=== PATIENT | female | born 1970 | race Caucasian/White ===

== ENCOUNTER → 2020-10-24 | Outpatient (CLI) | payer BC | LOC: RAD 08:30 | PROVIDERS: ATTEND Nurse Practitioner Family | DX: Z12.31 Encounter for screening mammogram for malignant neoplasm of breast (principal) | CPT/HCPCS: 77063; 77067 ==

== ENCOUNTER 2021-05-05 16:10 | Day surgery (SDC) | payer BC ==
[2021-05-05] VITALS (9 sets, daily range): BP systolic 112–131; BP diastolic 57–78
[~2021-05-05] VITALS: Ht 165.1 cm; Wt 81.9 kg
--- NOTE | 2021-05-05 16:33 | History & Physical-Surgical ---
History of Present Illness History of Present Illness Reason for visit/HPI Pt is a 51 yo female who had severe abdominal pain last night that was not going away. Located in RU it started after she ate a burger. She thinks she has had similar pain like this over the past 3-4 months; "but never this bad". She states usually she "vomits" and pain goes away, last night she vomited but pain did not go away. At its worst she rated it as an 8 out of 10; sharp crampy pain with no radiation. She states she recently lost about 50lbs with diet changes. She still has some pain now, but it is better than it was. "You couldn't even touch my stomach before". She was sent by the PA at [facility] urgent care for US; which showed thickened GB wall and cholelithiasis. Date of Admission May 05, 2021 at 16:10 Time Seen by a Provider: 16:22 I consulted on this patient on 05/05/21 16:28 Attending Physician Emanuel Ibarra DO Admitting Physician Naomie Boone MD Consult Allergies and Home Medications Patient Home Medication List Home Medication List Reviewed: Yes Past Jepapxx-Youvdq-Jhgoxw Hx Patient Social History Smoking Status: Never a Smoker Alcohol Use?: Yes (socially) Surgeries History of Surgeries: Yes Surgeries: Section, Nose (nasal polyp removal) Respiratory History of Respiratory Disorde: No Cardiovascular History of Cardiac Disorders: Yes Cardiac Disorders: Hypertension Neurological History of Neurological Disord: No Reproductive System : No Genitourinary History of Genitourinary Disor: No Gastrointestinal History of Gastrointestinal Di: No Musculoskeletal History of Musculoskeletal Dis: No Endocrine History of Endocrine Disorders: No HEENT History of HEENT Disorders: No Loss of Vision: Denies Hearing Impairment: Denies Cancer History of Cancer: No Psychosocial History of Psychiatric Problem: No Integumentary History of Skin or Integumenta: No Family Medical History Significant Family History: Hypertension (mother and father), Stroke (father) Review of Systems Constitutional: No dizziness, No fever, No malaise EENTM: No blurred vision, No double vision, No mouth pain, No mouth swelling Respiratory: No cough, No dyspnea on exertion Cardiovascular: No chest pain, No palpitations Gastrointestinal: RUQ, abdominal pain; No hematemesis, No jaundice; nausea, vomiting Genitourinary: No dysuria, No frequency, No hematuria Musculoskeletal: No back pain, No joint pain, No muscle pain Skin: No change in color, No change in hair/nails Psychiatric/Neurological: Denies Anxiety, Denies Depressed, Denies Seizure, Denies Tremors Physical Exam Vital Signs Capillary Refill : Height, Weight, BMI Height: '" Weight: lbs. oz. kg; BMI Method: General Appearance: WD/WN, Mild Distress Eyes: Bilateral Eye PERRL, Bilateral Eye EOMI HEENT: Pharynx Normal, Moist Mucous Membranes; No Pale Conjunctivae (L), No Pale Conjunctivae (R), No Scleral Icterus (L), No Scleral Icterus (R) Neck: Non Tender, Supple Respiratory: Chest Non Tender, Lungs Clear, Normal Breath Sounds, No Accessory Muscle Use, No Respiratory Distress Cardiovascular: Regular Rate, Rhythm, No Murmur Gastrointestinal: Normal Bowel Sounds, No Organomegaly, No Pulsatile Mass, Soft, Tenderness (RUQ with palpation) Rectal: Deferred Back: No CVA Tenderness, No Vertebral Tenderness Extremity: Non Tender, No Calf Tenderness, No Pedal Edema Neurologic/Psychiatric: Alert, Oriented x3, No Motor/Sensory Deficits, Normal Mood/Affect, stenciling machine tender II-XII Norm as Tested Skin: Normal Color, Warm/Dry Lymphatic: No Adenopathy (neck, axilla or groin) Data Review Radiology Date of Exam:05/05/21 US GALLBLADDER [id number] PROCEDURE: US gallbladder. TECHNIQUE: Multiple real-time grayscale images were obtained over the right upper quadrant in various projections. INDICATION: Right upper quadrant pain. FINDINGS: The liver is normal in size. There is hepatopedal flow in the main portal vein. There are no focal liver lesions. There is cholelithiasis. There is gallbladder wall thickening up to 3.4 mm. There is no pericholecystic fluid. There is prominence of the common bile duct up to 9 mm. There is mild intrahepatic biliary ductal dilatation. Pancreas is not well seen due to bowel gas. The aorta is nonaneurysmal. The IVC is patent. Right kidney is normal. There is no ascites. Castaneda sign is negative. IMPRESSION: Cholelithiasis and gallbladder wall thickening up to 3.4 mm. Additionally, there is prominence of the common bile duct up to 9 mm. Mild intrahepatic biliary ductal dilatation. Possibility of choledocholithiasis cannot be excluded. Recommend clinical correlation and, if warranted, follow up with MRCP. Dictated on workstation # [id number] Dict: 05/05/21 1500 Trans: 05/05/[address] [facility] [id number] Interpreted by: MEÑO BLACK MD Assessment/Plan Assessment/Plan Admission Diagonsis Acute Cholecystitis with Cholelithiasis Admission Status: Observation Assessment/Plan Acute Cholecystitis with Cholelithiasis Pt has symptoms which indicate cholecystitis and US has signs of acute cholecystitis; thickened GB wall, stones and dilated CBD. Her WBC and Bilirubin are normal but LFT's are elevated. I think she will benefit from having her gallbladder removed; we discussed the surgery in detail, risks and complications not limited to pain, bleeding, infection, scar and damage to bowel or bile duct. All questions answered to her and her 's satisfaction. I also told her that her pain may not go away; this is a small chance. She was in pain enough to come back to the hospital and wants to get her gallbladder removed. EMANUEL IBARRA DO May 05, 2021 16:33
[2021-05-05] MEDS ORDERED: AMLO-250 PO (16:44)
[2021-05-05] MEDS ORDERED: LOSA100T57 PO (16:44)
[2021-05-05] MEDS ORDERED: HYDR25TA4 PO (16:45)
[2021-05-05] MEDS ORDERED: LACTATED RINGERS 1,000 ML IV ONE (16:45)
[2021-05-05] MEDS ORDERED: ceFAZolin 2 GM IV Premixed 50 ML IV ONE (16:45)
[2021-05-05] MEDS ORDERED: proPOfol 200 MG/20 ML (DIPRIVAN) VIAL IV ONE (16:54)
[2021-05-05] MEDS ORDERED: ONDANSETRON 4 MG/2 ML (SDV) Z0FRAN ONE ×2 (16:54→16:59)
[2021-05-05] MEDS ORDERED: ROCURONIUM 10 MG/ML 5 ML SYRINGE IV ONE (16:54)
[2021-05-05] MEDS ORDERED: fentaNYL INJ 100 MCG/2 ML AMP ONE (16:54)
[2021-05-05] MEDS ORDERED: LIDOCAINE PF 2% 5 ML (XYLOCAINE) VIAL ONE (16:54)
[2021-05-05] MEDS ORDERED: MIDAZOLAM 2 MG/2 ML (VERSED) VIAL ONE (16:54)
[2021-05-05] MEDS ORDERED: SEVOFLURANE (ULTANE) 15 ML INHAL SOLN ONE ×2 (16:54→18:12)
[2021-05-05] MEDS ORDERED: HYDROmorphone 2 MG/ML VIAL (DILAUDID) ONE ×2 (16:59→18:07)
[2021-05-05] MEDS ORDERED: GLYCOPYRROLATE 0.2 MG/ML (ROBINUL) 2 ML VIAL ONE ×2 (17:42→18:08)
[2021-05-05] MEDS ORDERED: LACTATED RINGERS 1,000 ML IV PRN (17:45)
[2021-05-05] MEDS ORDERED: NEOSTIGMINE 3 MG/3 ML VIAL ONE (18:08)
[2021-05-05] MEDS ORDERED: KETOROLAC 30 MG/ML VIAL ONE (18:14)
--- NOTE | 2021-05-05 18:33 | Progress Note-Post Operative ---
Post-Operative Progess Note Surgeon (s)/French Instructor (s) Surgeon KI IBARRA DO French Instructor: BILL Schmidt Pre-Operative Diagnosis Acute cholecystitis with cholelithiasis Post-Operative Diagnosis same plus choledochalithiasis with possible obstruction Procedure & Operative Findings Date of Procedure 05/05/21 Procedure Performed/Findings PROCEDURE: Laparoscopic cholecystectomy with intraoperative cholangiogram. COMPLICATIONS: None. PROCEDURE: The patient was taken to the operating suite and was prepped and draped in sterile fashion. A surgical pause was performed. Just superior to the umbilicus, a 12 mm incision was made. Dissection was taken down to the fascia, which was then scored and grasped with a Darnell and the abdomen was then entered. A 0 Vicryl suture was placed in a [id number] fashion and a Medrano trocar was placed and secured. Pneumoperitoneum was achieved. A 5mm tro[address] in the subxyphoid and 2 in the right upper quadrant. The gallbladder was noted to be edematous and inflamed; wall was thickened. Then grasped at the fundus and elevated in the superior direction. Next grasped at Ambrose's pouch and pulled in the inferior and lateral direction. The cystic duct and cystic artery were then dissected out. Clip was placed on the distal portion of the cystic duct which was then partially transected. An arrow catheter was inserted into the duct. The cholangiogram was then performed. It was very hard to inject the contrast, which slowly went down the common bile duct but stopped and could see small stones at ampulla. Gave some Glucagon and waited appx 5 minutes, did get contrast into the small intestine. However, still couldn't flush contrast very easily. Removed the catheter and then tried to get stones out by pushing on the common bile duct, did get some sludge. There was not a lot of pressure because fluid did not come shooting out when catheter was removed. Clips were placed on proximal portion of the cystic duct and then the duct was then transected. Clips were placed along the proximal and distal portion of the cystic artery which was then transected. Hook cautery was used to dissect the gallbladder from the gallbladder fossa achieving hemostasis. The gallbladder was placed in an Endobag and removed through the 12 mm trocar site. The abdomen was then reinspected. Copious amounts of irrigation were used to irrigate the abdomen and there were no signs of active bleeding. Hemostasis had been achieved. The 12 mm fascial defect was then closed with 0 Vicryl suture that had been placed in a [id number]-[id number]-dwmop fashion. The abdomen was then desufflated, the trocars were removed. The abdomen was then washed and dried. The skin was then closed using 4-0 Monocryl in a subcuticular fashion. The abdomen was washed and dried and Skin Affix was place over incisions. Patient tolerated the procedure well without any complications and was taken to the recovery room in stable condition. Anesthesia Type GET Estimated Blood Loss Estimated blood loss (mL): scant Specimens/Packing Specimens Removed GB and contents KI IBARRA DO May 05, 2021 18:33
--- NOTE | 2021-05-05 18:42 | Diagnostic Imaging Report ---
Comparison: None. Technique: Single intraoperative fluoroscopic image of the abdomen. Fluoroscopic Time: 49.6 seconds. Findings: Intraoperative fluoroscopic image was obtained during cholecystectomy. Contrast is seen within the common bile duct emptying into the small bowel. Impression: Fluoroscopic intraoperative image obtained during cholecystectomy. Dictated by: Dictated on workstation # [id number]
[2021-05-05] MEDS ORDERED: HYDROmorphone 2 MG/ML VIAL (DILAUDID) IV ONE (18:45)
--- NOTE | 2021-05-05 18:57 | Anesthesia-General Post-Op ---
General Patient Condition Mental Status/LOC: Same as Preop Cardiovascular: Satisfactory Nausea/Vomiting: Absent Respiratory: Satisfactory Pain: Controlled Complications: Absent Post Op Complications Complications None Follow Up Care/Instructions Patient Instructions None needed. Anesthesia/Patient Condition Patient Condition Patient is doing well, no complaints, stable vital signs, no apparent adverse anesthesia problems. No complications reported per nursing. D/C home per [facility] Criteria: Yes VIANCA ADHIKARI CRNA May 05, 2021 18:57
--- NOTE | 2021-05-05 18:59 | Discharge Inst-Surgical ---
Discharge Inst-Surgical Depart Medication/Instructions New, Converted or Re-Newed RX: Other (Pt already rx Tramadol, can use for pain) Patient Instructions Follow up Appt: Make appointment for 1 week. [phone] May need to call Friday for Lab orders and help with getting to GI for ERCP Instructions: No lifting greater than 20 pounds. No strenuous activity. May shower in 24 hours, no tub bath or soaking. Use incentive spirometer at home as directed. No Smoking Skin/Wound Care: May remove bandages in am. You need to leave the Dermabond on incision it will fall off on it's own. Symptoms to Report: Appetite Changes, Extremity Discoloration, Numbness/Tingling, Swelling Increased, Bleeding Excessive, Eyesight Changes, Pain Increased, Urine Color Change, Constipation(Persistent), Fever over 101 degree F, Pain/Pressure in chest, Urinating Difficulty, Cough Up/Vomit Blood, Heart Beat Irreg/Pounding, Pain/Pressure in jaw, Cramps in feet or legs, Lightheadedness, Pain/Pressure in shoulder, Diarrhea(Persistent), Memory Changes Suddenly, Questions/Concerns, Weight gain consecutive days, Dizziness/Fainting, Nausea/Vomiting, Shortness of Breath, Weight gain over 2 pounds If questions or concerns contact your physician Or seek help at emergency department. Activity Activity as Tolerated: Yes Activity Instructions: Avoid Stress to Incision Driving Instructions: No Driving/Refer to Diet Discharge Diet: Avoid Fatty Foods, Low Fat/Low Cholesterol Diet After 24 Hours: Clear Liquid if Nauseous If Any Problems/Questions/Issu: Contact Your Physician, Go to Emergency Room Skin/Wound Care Infection Signs and Symptoms: Increased Redness, Foul Odor of Wound, Increased Drainage, Skin Itchy or Has a Rash, Increased Swelling, Temperature Above 101 F Wound Care Comment: heating pad to shoulder or neck tonight for pain Bathing Instructions: Shower Stitches/Temo/Dermabond Dis: Dermabond Ice Pack: Ice On and Off Site (as needed for pain at incision sites) KI IBARRA DO May 05, 2021 18:58
[2021-05-05] MEDS: ONDANSETRON 4 MG/2 ML (SDV) Z0FRAN IVP PRN ×2 (19:27→20:45)
== END 2021-05-05 22:00 | disposition home or self-care (01) ==
LOC: UNDOADMOB 16:10 → 4TH 16:10 → SDC 16:10 → 4TH 16:10 → EDSTATUS 17:50 → UNDODISOB 22:00 → SDC 22:00
PROVIDERS: ATTEND Surgery
DX: K80.12 Calculus of gallbladder with acute and chronic cholecystitis without obstruction (principal); I10 Essential (primary) hypertension; Z82.3 Family history of stroke; Z79.899 Other long term (current) drug therapy
CPT/HCPCS: 76000; 87081; 87636; 88304

== ENCOUNTER → 2021-05-05 | Outpatient (CLI) | payer BC ==
[~2021-05-05] MED LIST: AMLO-250 PO; HYDR25TA4 PO; LOSA100T57 PO
[2021-05-05 13:30] LABS: BASOPHILS % (AUTO) 0 % (0-10); EOSINOPHILS % (AUTO) 0 % (0-10); HEMATOCRIT 40 % (35-52); HEMOGLOBIN 12.7 g/dL (11.5-16.0); LYMPHOCYTES # (AUTO) 0.5 10^3/uL (1.0-4.0); LYMPHOCYTES % (AUTO) 8 % (12-44); MEAN CORPUSCULAR HEMOGLOBIN 28 pg (25-34); MEAN CORPUSCULAR HGB CONC 32 g/dL (32-36); MEAN CORPUSCULAR VOLUME 87 fL (80-99); MEAN PLATELET VOLUME 9.9 fL (9.0-12.2); MONOCYTES # (AUTO) 0.4 10^3/uL (0.0-1.0); MONOCYTES % (AUTO) 7 % (0-12); NEUTROPHILS # (AUTO) 5.3 10^3/uL (1.8-7.8); NEUTROPHILS % (AUTO) 85 % (42-75); PLATELET COUNT 266 10^3/uL (130-400); WHITE BLOOD COUNT 6.2 10^3/uL (4.3-11.0)
[2021-05-05 13:59] LABS: BILIRUBIN,TOTAL 2.6 MG/DL (0.1-1.0); CALCIUM 9.7 MG/DL (8.5-10.1); CREATININE SERUM 0.68 MG/DL (0.60-1.30); POTASSIUM 3.8 MMOL/L (3.6-5.0); TOTAL PROTEIN 7.3 GM/DL (6.4-8.2)
[2021-05-05 14:14] LABS: LYMPHOCYTES % (MANUAL) 11 %; MONOCYTES % (MANUAL) 8 %; NEUTROPHILS % (MANUAL) 81 %; RBC MORPH NORMAL
== END ==
LOC: LAB 13:02
PROVIDERS: ATTEND Physician Assistant
DX: I10 Essential (primary) hypertension (principal); R10.11 Right upper quadrant pain; R11.10 Vomiting, unspecified
CPT/HCPCS: 36415; 80053; 82150; 83690; 85007; 85027; 86677

== ENCOUNTER → 2021-05-05 | Outpatient (CLI) | payer BC ==
--- NOTE | 2021-05-05 15:30 | Diagnostic Imaging Report ---
PROCEDURE: US gallbladder. TECHNIQUE: Multiple real-time grayscale images were obtained over the right upper quadrant in various projections. INDICATION: Right upper quadrant pain. FINDINGS: The liver is normal in size. There is hepatopedal flow in the main portal vein. There are no focal liver lesions. There is cholelithiasis. There is gallbladder wall thickening up to 3.4 mm. There is no pericholecystic fluid. There is prominence of the common bile duct up to 9 mm. There is mild intrahepatic biliary ductal dilatation. Pancreas is not well seen due to bowel gas. The aorta is nonaneurysmal. The IVC is patent. Right kidney is normal. There is no ascites. Castaneda sign is negative. IMPRESSION: Cholelithiasis and gallbladder wall thickening up to 3.4 mm. Additionally, there is prominence of the common bile duct up to 9 mm. Mild intrahepatic biliary ductal dilatation. Possibility of choledocholithiasis cannot be excluded. Recommend clinical correlation and, if warranted, follow up with MRCP. Dictated by: Dictated on workstation # [id number]
== END ==
LOC: RAD 13:22
PROVIDERS: ATTEND Physician Assistant
DX: K80.20 Calculus of gallbladder without cholecystitis without obstruction (principal); K83.8 Other specified diseases of biliary tract
CPT/HCPCS: 76705

== ENCOUNTER → 2021-05-08 | Outpatient (CLI) | payer BC ==
[2021-05-08 15:38] LABS: ALBUMIN 3.7 GM/DL (3.2-4.5); BILIRUBIN,TOTAL 0.8 MG/DL (0.1-1.0); CALCIUM 9.3 MG/DL (8.5-10.1); CREATININE SERUM 0.74 MG/DL (0.60-1.30); POTASSIUM 3.6 MMOL/L (3.6-5.0)
== END ==
LOC: LAB 14:59
PROVIDERS: ATTEND Surgery
DX: Z01.89 Encounter for other specified special examinations (principal)
CPT/HCPCS: 36415; 80053

== ENCOUNTER → 2021-05-28 | Outpatient (CLI) | payer BC ==
[~2021-05-28] MED LIST changes: +CATHETER FLUSH 10 ML SYR IV PRN
--- NOTE | 2021-05-28 11:57 | Diagnostic Imaging Report ---
INDICATION: Cholecystectomy on 05/05/2021. Epigastric pain. Evaluate for leak. EXAMINATION: HIDA scan 05/28/2021 FINDINGS: After uneventful administration 4.33 mCi of mebrofenin intravenously subsequent imaging is performed with prompt homogeneous uptake seen throughout the liver. Small bowel seen within less than 30 minutes. Imaging was performed to 80 minutes with the lateral view also obtained. Radiotracer courses along the left inferior lateral border of the liver. This could represent radiotracer within the duodenum and refluxing into the stomach. A focal leak less likely but difficult to exclude. CT recommended to evaluate for collection of fluid in the region. IMPRESSION: 1. Radiotracer coursing along the left inferior lateral border of the left lobe of the liver nonspecific see above discussion. CT recommended for better characterization of the anatomy within the region and to exclude a fluid collection corresponding to the area described above. Report was faxed to office of Dr. Gonzalez by shae at 11:54am. Dictated by: Dictated on workstation # [id number]
== END ==
LOC: CARD 10:00
PROVIDERS: ATTEND Surgery
DX: R10.13 Epigastric pain (principal); Z90.49 Acquired absence of other specified parts of digestive tract
CPT/HCPCS: 78226; A9537

== ENCOUNTER → 2022-03-14 | Outpatient (CLI) | payer BC ==
[~2022-03-14] MED LIST changes: -CATHETER FLUSH 10 ML SYR IV PRN
[2022-03-14 12:30] LABS: BILIRUBIN,DIRECT 0.3 MG/DL (0.0-0.3); BILIRUBIN,INDIRECT 0.3 MG/DL; BILIRUBIN,TOTAL 0.6 MG/DL (0.1-1.0); TOTAL PROTEIN 7.3 GM/DL (6.4-8.2)
== END ==
LOC: LAB 11:36
PROVIDERS: ATTEND Internal Medicine Gastroenterology
DX: R94.5 Abnormal results of liver function studies (principal)
CPT/HCPCS: 36415; 80076

== ENCOUNTER → 2022-11-25 | Outpatient (CLI) | payer BC ==
--- NOTE | 2022-11-26 11:12 | Diagnostic Imaging Report ---
EXAMINATION: Bilateral screening mammogram with CAD. INDICATION: Screening. COMPARISON: This study was compared to the prior exams of 10/24/2020 and 12/29/2018. PERSONAL HISTORY: At this time, there are no current complaints. FINDINGS: Breast Tissue Density: C . The breast tissue is heterogeneously dense. Scattered fibroglandular elements may obscure underlying pathology. There are no suspicious masses, microcalcifications, or areas of architectural distortion. IMPRESSION: No suspicious findings. ACR BI-RADS Category 1: Negative. Result letter will be mailed to the patient. Note: At least 10% of breast cancer is not imaged by mammography. Normal interval followup. The patient will receive a letter with the results in the mail. Your mammogram demonstrates that you have dense breast tissue which could hide abnormalities and, if you have other risk factors for breast cancer that have been identified, you might benefit from supplemental screening tests that may be suggested by your ordering physician. Dense breast tissue, in and of itself, is a relatively common condition. This information is not provided to cause undue concern but rather to raise your awareness and to promote discussion with your physician regarding the presence of other risk factors in addition to dense breast tissue. A report of your mammography results will be sent to you and your physician. You should contact your physician if you have any questions or concerns regarding this report. A mammogram does not have 100% sensitivity and, therefore, a negative imaging study should not delay further work up of a suspicious abnormality. Patient information is entered into the [facility] reminder system using PDV with a target due date for the next screening mammogram. The patient will receive a reminder. "Our facility is accredited by the [employer] Mammography Program." Dictated on workstation # [id number]
== END ==
LOC: RAD 15:14
PROVIDERS: ATTEND Nurse Practitioner Family
DX: Z12.31 Encounter for screening mammogram for malignant neoplasm of breast (principal)
CPT/HCPCS: 77063; 77067